=== PATIENT | female | born 1940 | race Caucasian/White ===

== ENCOUNTER 2016-09-10 13:07 | Outpatient (CLI) | payer MEDICARE, OTHER | END 2016-09-10 13:08 | disposition home or self-care (01) | DX: Z12.31 Encounter for screening mammogram for malignant neoplasm of breast (principal) ==

== ENCOUNTER 2016-09-25 08:15 | Outpatient (CLI) | payer MEDICARE, OTHER | END 2016-09-25 08:16 | disposition home or self-care (01) | DX: E78.5 Hyperlipidemia, unspecified (principal); I10 Essential (primary) hypertension; E03.9 Hypothyroidism, unspecified ==

== ENCOUNTER 2017-04-01 17:42 | Outpatient (CLI) | payer MEDICARE, OTHER ==
[2017-04-01 13:08] LABS: ALBUMIN/GLOBULIN RATIO 1.3 (1.0-2.2); BILIRUBIN,TOTAL 0.8 mg/dL (0.2-1.0); CALCIUM 9.5 mg/dL (8.5-10.3); CREATININE 0.9 mg/dL (0.4-1.0); POTASSIUM 3.2 mmol/L (3.5-5.0); TOTAL PROTEIN 6.8 g/dL (6.7-8.2)
== END 2017-04-01 17:43 | disposition home or self-care (01) ==
LOC: LAB.WCP 17:42
PROVIDERS: ATTEND Family Medicine
DX: R73.01 Impaired fasting glucose (principal); I10 Essential (primary) hypertension
CPT/HCPCS: 36415; 80053

== ENCOUNTER 2017-09-22 13:09 | Outpatient (CLI) | payer MEDICARE, OTHER ==
--- NOTE | 2017-09-23 21:18 | Mammography Report ---
DATE OF SERVICE: 09/22/2017 DIGITAL SCREENING MAMMOGRAM: 09/22/2017 CLINICAL INDICATION: A 76-year-old for screening. COMPARISON: 08/2016, 03/2015, 03/2014, 03/2013, 03/2012, 03/2011, 03/2010. TECHNIQUE: Routine CC and MLO projections were obtained of the breasts. The breasts again demonstrate heterogeneously dense fibroglandular parenchyma bilaterally. Coarse, typically benign calcifications are present. No suspicious masses, clustered microcalcifications, or regions of architectural distortion are identified. IMPRESSION: Benign findings. RECOMMENDATIONS: Routine annual screening unless otherwise clinically indicated. BIRADS category 2 benign findings. STANDARD QUALIFYING STATEMENTS 1. This examination was reviewed with the aid of Computed-Aided Detection (CAD). 2. A negative or benign imaging report should not delay biopsy if clinically suspicious findings are present. Consider surgical consultation if warranted. More than 5% of cancers are not identified by imaging. 3. Dense breasts may obscure an underlying neoplasm. TD: 09/23/2017 22:17
== END 2017-09-22 13:10 | disposition home or self-care (01) ==
LOC: DI 13:09
PROVIDERS: ATTEND Family Medicine
DX: Z12.31 Encounter for screening mammogram for malignant neoplasm of breast (principal)
CPT/HCPCS: 77067

== ENCOUNTER 2017-09-26 09:00 | Outpatient (CLI) | payer MEDICARE, OTHER ==
[2017-09-26 12:41] LABS: BASOPHILS % (AUTO) 0.4 %; EOSINOPHILS # (AUTO) 0.2 10^3/uL (0.0-0.7); EOSINOPHILS % (AUTO) 3.3 %; HGB - HEMOGLOBIN 13.8 g/dL (12.0-16.0); LYMPHOCYTES # (AUTO) 1.9 10^3/uL (1.5-3.5); LYMPHOCYTES % (AUTO) 28.6 %; MEAN CORPUSCULAR HEMOGLOBIN 29.5 pg (27.0-31.0); MEAN CORPUSCULAR HGB CONC 33.8 g/dL (32.0-36.0); MEAN CORPUSCULAR VOLUME 87.4 fL (81.0-99.0); MONOCYTES # (AUTO) 0.6 10^3/uL (0.0-1.0); MONOCYTES % (AUTO) 8.7 %; NEUTROPHILS # (AUTO) 3.9 10^3/uL (1.5-6.6); PLT - PLATELET COUNT 248 10^3/uL (130-450); RED BLOOD COUNT 4.69 10^6/uL (4.20-5.40); RED CELL DISTRIBUTION WIDTH 12.6 % (12.0-15.0); WHITE BLOOD COUNT 6.7 x10^3/uL (4.8-10.8)
[2017-09-26 13:02] LABS: ALBUMIN/GLOBULIN RATIO 1.2 (1.0-2.2); ALKALINE PHOSPHATASE 84 IU/L (42-121); ALT ALANINE AMINOTRANSFERASE 16 IU/L (10-60); AST ASPARTATE AMINOTRANSFERASE 24 IU/L (10-42); BILIRUBIN,TOTAL 0.6 mg/dL (0.2-1.0); BUN - BLOOD UREA NITROGEN 13 mg/dL (6-20); CALCIUM 9.6 mg/dL (8.5-10.3); CARBON DIOXIDE - CO2 29 mmol/L (21-32); CHLORIDE 94 mmol/L (101-111); CREATININE 0.9 mg/dL (0.4-1.0); GFR - MDRD 61 (>89); GLUCOSE 97 mg/dL (70-100); SODIUM 136 mmol/L (135-145); TOTAL PROTEIN 7.4 g/dL (6.7-8.2)
== END 2017-09-26 09:01 | disposition home or self-care (01) ==
LOC: LAB.WCP 09:00
PROVIDERS: ATTEND Family Medicine
DX: E03.9 Hypothyroidism, unspecified (principal)
CPT/HCPCS: 36415; 80053; 84443; 85025

== ENCOUNTER 2018-02-04 08:00 | Outpatient (CLI) | payer MEDICARE, OTHER ==
[2018-02-04 19:44] LABS: CALCIUM 9.3 mg/dL (8.5-10.3); MAGNESIUM 2.2 mg/dL (1.7-2.8)
== END 2018-02-04 08:01 | disposition home or self-care (01) ==
LOC: LAB.WCP 08:00
PROVIDERS: ATTEND Family Medicine
DX: R29.0 Tetany (principal)
CPT/HCPCS: 36415; 80048; 83735

== ENCOUNTER 2018-03-13 09:16 | Outpatient (CLI) | payer MEDICARE, OTHER ==
[2018-03-13 14:15] LABS: BUN - BLOOD UREA NITROGEN 13 mg/dL (6-20); CALCIUM 9.5 mg/dL (8.5-10.3); CARBON DIOXIDE - CO2 33 mmol/L (21-32); CHLORIDE 95 mmol/L (101-111); CHOL/HDL RATIO 3.5 (<4.4); CHOLESTEROL 173 mg/dL; CREATININE 0.8 mg/dL (0.4-1.0); GFR - MDRD 69 (>89); GLUCOSE 88 mg/dL (70-100); HDL CHOLESTEROL 49 mg/dL; LDL CHOLESTEROL,CALCULATED 89 mg/dL; LDL/HDL RATIO 1.8 (<4.4); SODIUM 136 mmol/L (135-145); VLDL CHOLESTEROL 35 mg/dL
== END 2018-03-13 09:17 | disposition home or self-care (01) ==
LOC: LAB.WCP 09:16
PROVIDERS: ATTEND Family Medicine
DX: I10 Essential (primary) hypertension (principal); E78.5 Hyperlipidemia, unspecified
CPT/HCPCS: 36415; 80048; 80061; 83721

== ENCOUNTER 2018-10-02 08:31 | Outpatient (CLI) | payer MEDICARE, OTHER ==
[2018-10-02 13:54] LABS: ALBUMIN 3.8 g/dL (3.2-5.5); ALBUMIN/GLOBULIN RATIO 1.1 (1.0-2.2); BILIRUBIN,TOTAL 0.7 mg/dL (0.2-1.0); CALCIUM 9.7 mg/dL (8.5-10.3); CREATININE 0.8 mg/dL (0.4-1.0); TOTAL PROTEIN 7.3 g/dL (6.7-8.2)
== END 2018-10-02 08:32 | disposition home or self-care (01) ==
LOC: LAB.WCP 08:31
PROVIDERS: ATTEND Family Medicine
DX: E03.9 Hypothyroidism, unspecified (principal); I10 Essential (primary) hypertension
CPT/HCPCS: 36415; 80053; 84443

== ENCOUNTER 2018-10-20 14:24 | Outpatient (CLI) | payer MEDICARE, OTHER ==
--- NOTE | 2018-10-21 09:14 | Mammography Report ---
Reason: SCREENING MAMMO Procedure Date: 10/20/2018 Accession Number: [id number] / [id number] Procedure: DARREN - Screening Mammo w/Armando CPT Code: FULL RESULT: EXAM: Screening Mammo w/Armando DATE: 10/20/2018 3:07 PM CLINICAL HISTORY: Screening encounter. 25 years of hormone therapy. TECHNIQUE: Bilateral CC and MLO views were obtained. COMPARISON: 09/22/2017 through 03/25/2013. FINDINGS: The breasts demonstrate heterogeneously dense fibroglandular parenchyma bilaterally. There are typically benign vascular and coarse calcifications. No suspicious masses, clustered microcalcifications, or regions of architectural distortion are identified. IMPRESSION: Benign findings RECOMMENDATION: Routine annual screening unless otherwise clinically indicated. BIRADS CATEGORY 2: Benign findings STANDARD QUALIFYING STATEMENTS: 1. This examination was not reviewed with the aid of Computer-Aided Detection (CAD). 2. A negative or benign imaging report should not delay biopsy if clinically suspicious findings are present. Consider surgical consultation if warrented. More than 5% of cancers are not identified by imaging. 3. Dense breasts may obscure an underlying neoplasm. 4. This examination was reviewed with the aid of 3D breast imaging (tomosynthesis).
== END 2018-10-20 14:25 | disposition home or self-care (01) ==
LOC: DI 14:24
DX: Z12.31 Encounter for screening mammogram for malignant neoplasm of breast (principal)
CPT/HCPCS: 77063; 77067

== ENCOUNTER 2019-03-25 08:18 | Day surgery (SDC) | payer MEDICARE, OTHER ==
[~2019-03-25 08:18] MED LIST: BRIMONIDINE 0.2% OPHTH DROPS 5 ML ONE; BSS/LIDOCAINE/EPINEPHRINE 1 ML SYRINGE ONE; CYCLOPENTOLATE 1% OPHTH DROPS 2 ML ONE; EPINEPHrine 1 MG/ML AMP ONE; KETOROLAC 0.45% OPHTH DROPS ONE; PHENYLEPHRINE 2.5% OPHTH 2 ML DROPS ONE; PROPARACAINE 0.5% OPHTH DROPS 15 ML ONE; TIMOLOL 0.5% OPHTH DROPS ONE; TRIAMCIN/MOXIFLOX OPHTHALMIC 0.6 ML VIAL IO ONE; VANCOMYCIN OPHTHALMI 8MG/0.8ML 8 MG/0.8 ML SYRINGE IO ONE
[2019-03-25] MEDS ORDERED: LACTATED RINGERS 500 ML IV ONE (08:37)
[2019-03-25] MEDS ORDERED: PROPARACAINE 0.5% OPHTH DROPS 15 ML RIGHTEYE ONE ×2 (08:45→10:00)
[2019-03-25] MEDS ORDERED: KETOROLAC 0.45% OPHTH DROPS RIGHTEYE ONE (08:45)
[2019-03-25] MEDS ORDERED: CYCLOPENTOLATE 1% OPHTH DROPS 2 ML RIGHTEYE ONE (08:45)
[2019-03-25] MEDS ORDERED: PHENYLEPHRINE 2.5% OPHTH 2 ML DROPS RIGHTEYE ONE (08:45)
--- NOTE | 2019-03-25 08:54 | ANESTHESIA ---
Pre-Anesthesia VS, & Labs - Diagnosis right senile combined cataract - Procedure right cataract extraction with intraocular lens - NPO >8 hours - Is Patient ?: Not Applicable Home Medications and Allergies Home Medications: Ambulatory Orders Albuterol Sulf [Ventolin Hfa Inhaler] 1 - 2 puffs INH Q4HR PRN 03/25/19 Bepotastine Besilate [Bepreve] 1 drops OP DAILY 03/25/19 Potassium Chloride [Micro-K] 10 meq PO BIDWM 03/25/19 Albuterol [Ventolin Hfa] 2 puffs INH Q4H PRN 07/06/13 Aspirin EC [Ecotrin] 81 mg PO DAILY 07/06/13 Beclomethasone 40 Mcg [Qvar 40] 0 puffs INH BID 07/06/13 Docusate Sodium Oral Soln [Colace] 100 mg PO BID 07/06/13 Fexofenadine HCl [Yuridia] 180 mg PO 07/06/13 Fosinopril Sodium 20 mg PO QPM 07/06/13 Hydrochlorothiazide 25 mg PO 07/06/13 Latanoprost 0.005% Ophth Drops [Xalatan] 1 drops OPTH QPM 07/06/13 Levothyroxine Sodium [Synthroid] 75 mcg PO 07/06/13 Lovastatin [Mevacor] 40 mg PO QPM 07/06/13 Metoprolol Succinate [Toprol Xl] 25 mg PO BID 07/06/13 Olopatadine HCl [Patanol] 5 ml OP TID PRN 07/06/13 Ranitidine HCl [Acid Video Production Coordinator 150] 150 mg PO BID 07/06/13 Triamcinolone [Nasacort Aq] 1 sprays SANDEE DAILY 07/06/13 Allergies/Adverse Reactions: Allergies Allergy/AdvReac Type Severity Reaction Status Date / Time aspirin AdvReac Mild Nausea Verified 03/25/19 08:42 erythromycin base AdvReac Cramps Verified 03/25/19 08:42 Anes History & Medical History - Anesthetic History Anesthesia Complications: reports: Post-Operative Nausea/Vomiting - Medical History Cardiovascular: reports: Arrhythmia, Valve disorder Pulmonary: reports: Asthma Gastrointestinal: reports: GERD Neuro: reports: Fainting (with dehydration 4 years ago) Musculoskeletal: reports: None Endocrine/Autoimmune: reports: HyPOthyroidism Smoking Status: Never smoker - Surgical History Gynecologic: Hysterectomy Orthopedic: Other Exam General: Alert Dental: WNL Mallampati classification: II Thyromental Distance: greater than 6 cm Respiratory: Lungs clear Cardiovascular: Regular rate, Normal S1, Normal S2 Mental/Cognitive Status: Alert/Oriented X3 Plan Anesthesia Type: MAC Consent for Procedure(s) Verified and Reviewed: Yes Code Status: Attempt Resuscitation ASA classification: 2-Mild systemic disease Is this case an emergency?: No
[2019-03-25] MEDS ORDERED: EPINEPHrine 1 MG/ML AMP IVP ONE (10:00)
[2019-03-25] MEDS ORDERED: BRIMONIDINE 0.2% OPHTH DROPS 5 ML OPTH ONE (10:00)
[2019-03-25] MEDS ORDERED: TIMOLOL 0.5% OPHTH DROPS OPTH ONE (10:00)
[2019-03-25] MEDS ORDERED: BSS/LIDOCAINE/EPINEPHRINE 1 ML SYRINGE IO ONE (10:00)
[2019-03-25] MEDS ORDERED: CHONDR SULF/HYALURONATE SYRINGE IO ONE (10:00)
[2019-03-25] MEDS ORDERED: VANCOMYCIN OPHTHALMI 8MG/0.8ML 8 MG/0.8 ML SYRINGE IO ONE (10:02)
[2019-03-25] MEDS ORDERED: TRIAMCIN/MOXIFLOX OPHTHALMIC 0.6 ML VIAL IO ONE (10:02)
[2019-03-25 10:25] VITALS: BP 128/58
--- NOTE | 2019-03-25 12:09 | OPERATIVE REPORT ---
DATE OF SERVICE: 03/25/2019 Physician: Denys Rosales MD PREOPERATIVE DIAGNOSIS: Visually significant cataract, right eye. This was her first cataract surge ry. POSTOPERATIVE DIAGNOSIS: Visually significant cataract, right eye. This was her first cataract surg randell. DESCRIPTION OF PROCEDURE: Phacoemulsification with posterior chamber intraocular lens implant, right eye. SURGEON: Denys Rosales M.D. ANESTHESIA: Monitored anesthesia care. COMPLICATIONS: None. OPERATIVE INDICATIONS: This is an 78-year-old woman with progressive vision loss in the right eye du e to primarily macular degeneration. She has dry macular degeneration that is severe, but she also h as a 4+ nuclear sclerotic cataract and 3+ cortical cataract. Best corrected visual acuity was 20/200 with glare to hand motion in the right eye. Indications for surgery are overall decrease in vision, difficulty seeing words on a computer screen, difficulty reading, difficulty seeing words, closed ca ption or game scores on TV, difficulty seeing street signs, difficulty driving in low light or at nig ht, difficulty driving at night because of headlights from other vehicles, and difficulty with glare or bright lights in any situation. She was consented at length concerning risks and benefits of dustin ract surgery, after which she expressed a desire to proceed with surgery. OPERATIVE PROCEDURE: Patient was taken into OR #3 and placed under monitored anesthesia care. Surgi maia timeout was conducted confirming correct patient, correct procedure, and correct surgical site. She was given topical anesthesia, and then prepped and draped in the usual sterile fashion. The eye was entered at the 12 and 9 o'clock positions. Intracameral Shugarcaine was injected into the anteri or chamber, followed by Viscoat. A continuous-tear curvilinear capsulorrhexis was performed. The nu cleus was hydrodissected and phacoemulsified. The cortex was evacuated using automated infusion and aspiration. Provisc was injected in the capsular bag, and a 20.5 diopter intraocular lens inserted i nto the bag. Approximately 0.8 mL mixture of triamcinolone, moxifloxacin and vancomycin was injected subconjunctivally in the superior quadrant for infection and inflammation prophylaxis. I and A was used to evacuate the viscoelastic materials. The eye was inflated to physiologic pressure using rodriguez nced salt solution and found to be watertight. Patient was taken from the operating room in good con dition and given postoperative instructions. TD: 03/25/2019 11:02
== END 2019-03-25 08:19 | disposition home or self-care (01) ==
LOC: SDS 08:18
PROVIDERS: ATTEND Ophthalmology
PROC: 08RJ3JZ Replacement of Right Lens with Synthetic Substitute, Percutaneous Approach (ICD-10-PCS; principal; 2019-03-25 09:30)
DX: H25.811 Combined forms of age-related cataract, right eye (principal); I10 Essential (primary) hypertension; I48.91 Unspecified atrial fibrillation; J45.909 Unspecified asthma, uncomplicated; Z87.891 Personal history of nicotine dependence
CPT/HCPCS: 66984; A9270; J3490; V2632

== ENCOUNTER 2019-04-29 08:18 | Day surgery (SDC) | payer MEDICARE, OTHER ==
[~2019-04-29 08:18] MED LIST changes: -BRIMONIDINE 0.2% OPHTH DROPS 5 ML ONE; -BSS/LIDOCAINE/EPINEPHRINE 1 ML SYRINGE ONE; -EPINEPHrine 1 MG/ML AMP ONE; -TIMOLOL 0.5% OPHTH DROPS ONE; -TRIAMCIN/MOXIFLOX OPHTHALMIC 0.6 ML VIAL IO ONE; -VANCOMYCIN OPHTHALMI 8MG/0.8ML 8 MG/0.8 ML SYRINGE IO ONE
[2019-04-29] MEDS ORDERED: MIDAZOLAM 2 MG/2 ML VIAL IVP ONE (08:19)
[2019-04-29] MEDS ORDERED: fentaNYL 100 MCG/2 ML VIAL IVP ONE (08:19)
[2019-04-29] MEDS ORDERED: CYCLOPENTOLATE 1% OPHTH DROPS 2 ML LEFTEYE ONE (08:54)
[2019-04-29] MEDS ORDERED: KETOROLAC 0.45% OPHTH DROPS LEFTEYE ONE (08:54)
[2019-04-29] MEDS ORDERED: PHENYLEPHRINE 2.5% OPHTH 2 ML DROPS LEFTEYE ONE (08:54)
[2019-04-29] MEDS ORDERED: PROPARACAINE 0.5% OPHTH DROPS 15 ML LEFTEYE ONE (08:54)
[2019-04-29] MEDS ORDERED: LACTATED RINGERS 500 ML IV ONE (08:56)
--- NOTE | 2019-04-29 09:05 | ANESTHESIA ---
Pre-Anesthesia VS, & Labs - Diagnosis Left senile combined cataract - Procedure Left phaco with IOL implant Vital Signs: Temp Pulse Resp BP Pulse Ox 36.6 C 80 14 163/63 H 98 04/29/19 08:46 04/29/19 08:46 04/29/19 08:46 04/29/19 08:46 04/29/19 08:46 Height 5 ft 1 in Weight (kg) 67.9 kg - NPO >8 hours - Is Patient ?: Not Applicable - Lab Results Lab results reviewed: No Home Medications and Allergies Home Medications: Ambulatory Orders Cetirizine [ZyrTEC] 10 mg PO DAILY 04/28/19 Aspirin EC [Ecotrin] 81 mg PO DAILY 07/06/13 Beclomethasone 40 Mcg [Qvar 40] 0 puffs INH BID 07/06/13 Docusate Sodium Oral Soln [Colace] 100 mg PO BID 07/06/13 Fosinopril Sodium 20 mg PO QPM 07/06/13 Hydrochlorothiazide 25 mg PO DAILY 07/06/13 Latanoprost 0.005% Ophth Drops [Xalatan] 1 drops OPTH QPM 07/06/13 Levothyroxine Sodium [Synthroid] 75 mcg PO DAILY 07/06/13 Lovastatin [Mevacor] 40 mg PO QPM 07/06/13 Metoprolol Succinate [Toprol Xl] 25 mg PO BID 07/06/13 Ranitidine HCl [Acid Rehab Manager 150] 150 mg PO BID 07/06/13 Albuterol Sulf [Ventolin Hfa Inhaler] 1 - 2 puffs INH Q4HR PRN 03/25/19 Bepotastine Besilate [Bepreve] 1 drops OP DAILY 03/25/19 Potassium Chloride [Micro-K] 10 meq PO BIDWM 03/25/19 Cetirizine [ZyrTEC] 10 mg PO DAILY 04/28/19 Allergies/Adverse Reactions: Allergies Allergy/AdvReac Type Severity Reaction Status Date / Time aspirin AdvReac Mild Nausea Verified 03/25/19 08:42 erythromycin base AdvReac Cramps Verified 03/25/19 08:42 latex AdvReac Itching Verified 04/28/19 14:20 Anes History & Medical History - Anesthetic History Anesthesia Complications: reports: No previous complications Family history of Anesthesia Complications: Denies Family history of Malignant Hyperthermia: Denies - Medical History Cardiovascular: reports: Hypertension, Arrhythmia Pulmonary: reports: Asthma Gastrointestinal: reports: GERD Urinary: reports: None Neuro: reports: Fainting (with dehydration 4 years ago) Musculoskeletal: reports: Osteoarthritis Endocrine/Autoimmune: reports: HyPOthyroidism Blood Disorders: reports: None Skin: reports: Other Smoking Status: Never smoker Psychosocial: reports: No issues indicated - Surgical History General: Colonoscopy Eyes Ears Nose Throat (EENT): Tonsil/Adenoidectomy Gynecologic: Hysterectomy Orthopedic: Other Exam General: Alert, Oriented x3 Dental: WNL Mouth Opening: Greater than 4 Fingerbreadths Neck Mobility: Normal Mallampati classification: I Thyromental Distance: greater than 6 cm Respiratory: Lungs clear Mental/Cognitive Status: Alert/Oriented X3 Cognitive Status: Within normal limits Plan Anesthesia Type: MAC Consent for Procedure(s) Verified and Reviewed: Yes Code Status: Attempt Resuscitation ASA classification: 2-Mild systemic disease Is this case an emergency?: No
[2019-04-29] MEDS ORDERED: EPINEPHrine 1 MG/ML AMP IVP ONE (09:39)
[2019-04-29] MEDS ORDERED: BRIMONIDINE 0.2% OPHTH DROPS 5 ML OPTH ONE (09:39)
[2019-04-29] MEDS ORDERED: BSS/LIDOCAINE/EPINEPHRINE 1 ML SYRINGE IO ONE (09:40)
[2019-04-29] MEDS ORDERED: CHONDR SULF/HYALURONATE SYRINGE IO ONE (09:40)
[2019-04-29] MEDS ORDERED: VANCOMYCIN OPHTHALMI 8MG/0.8ML 8 MG/0.8 ML SYRINGE IO ONE ×2 (09:40→10:49)
[2019-04-29] MEDS ORDERED: TIMOLOL 0.5% OPHTH DROPS OPTH ONE (09:40)
[2019-04-29] MEDS ORDERED: TRIAMCIN/MOXIFLOX OPHTHALMIC 0.6 ML VIAL IO ONE ×2 (09:40→10:48)
--- NOTE | 2019-04-29 10:15 | OPERATIVE REPORT ---
DATE OF SERVICE: 04/29/2019 Physician: Denys Rosales MD PREOPERATIVE DIAGNOSIS: Visually significant cataract, left eye. Cataract surgery was performed on the right eye on 03/25/2019. POSTOPERATIVE DIAGNOSIS: Visually significant cataract, left eye. Cataract surgery was performed on the right eye on 03/25/2019. PROCEDURE: Phacoemulsification with posterior chamber intraocular lens implant, left eye. SURGEON: Denys Rosales MD ANESTHESIA: Monitored anesthesia care. COMPLICATIONS: None. OPERATIVE INDICATIONS: This is an 78-year-old woman with progressive vision loss in the left eye due to 3+ nuclear sclerotic and 3+ cortical cataract. Best corrected visual acuity was 20/125 with glare to hand motion vision in the left eye. Indications for surgery are overall decrease in vision, difficulty seeing words on a computer screen, difficulty reading, difficulty seeing words, closed caption or game scores on TV, difficulty seeing street signs, difficulty driving in low light or at night, difficulty driving at night because of headlights from other vehicles, and difficulty with glare or bright lights in any situation. She was consented at length concerning risks and benefits of cataract surgery, after which she expressed a desire to proceed with surgery. OPERATIVE PROCEDURE: Patient was taken to OR #3 and placed under monitored anesthesia care. A surgical timeout was conducted confirming correct patient, correct procedure, and correct surgical site. She was given topical anesthesia and then prepped and draped in the usual sterile fashion. The eye was entered at the 6 and 3 o'clock positions. Intracameral Shugarcaine was injected into the anterior chamber followed by Viscoat. A continuous-tear curvilinear capsulorrhexis was performed. The nucleus was hydrodissected and phacoemulsified. The cortex was evacuated using automated infusion and aspiration (I&A). Provisc was injected in the capsular bag and a 20.5 diopter intraocular lens inserted in the bag. Approximately 0.8 mL of a mixture of triamcinolone, moxifloxacin and vancomycin was injected subconjunctivally in the superior quadrant for infection and inflammation prophylaxis. I&A was used to evacuate the viscoelastic materials. The eye was inflated to physiologic pressure using balanced salt solution and found to be watertight. The patient was taken from the operating room in good condition and given postoperative instructions. TD: 04/29/2019 09:58 SHARONDA
[2019-04-29 10:20] VITALS: BP 118/63
[2019-04-29] MEDS ORDERED: BRIMONIDINE 0.2% OPHTH DROPS 5 ML ONE (10:49)
[2019-04-29] MEDS ORDERED: EPINEPHrine 1 MG/ML AMP ONE (10:49)
[2019-04-29] MEDS ORDERED: BSS/LIDOCAINE/EPINEPHRINE 1 ML SYRINGE ONE (10:49)
[2019-04-29] MEDS ORDERED: TIMOLOL 0.5% OPHTH DROPS ONE (10:49)
== END 2019-04-29 08:19 | disposition home or self-care (01) ==
LOC: SDS 08:18
PROVIDERS: ATTEND Ophthalmology
PROC: 08RK3JZ Replacement of Left Lens with Synthetic Substitute, Percutaneous Approach (ICD-10-PCS; principal; 2019-04-29 09:30)
DX: H25.812 Combined forms of age-related cataract, left eye (principal); J45.909 Unspecified asthma, uncomplicated; I48.91 Unspecified atrial fibrillation; K21.9 Gastro-esophageal reflux disease without esophagitis; E78.00 Pure hypercholesterolemia, unspecified; E03.9 Hypothyroidism, unspecified; H35.30 Unspecified macular degeneration; Z79.82 Long term (current) use of aspirin; Z79.51 Long term (current) use of inhaled steroids; Z87.891 Personal history of nicotine dependence
CPT/HCPCS: 66984; A9270; J3490; V2632

== ENCOUNTER 2019-05-29 20:10 | Emergency (ER) | payer MEDICARE, OTHER ==
[2019-05-29] MEDS ORDERED: PROPARACAINE 0.5% OPHTH DROPS 15 ML LEFTEYE STA (22:29)
--- NOTE | 2019-05-29 22:58 | ED Physician Documentation ---
PD HPI OPHTHO - Stated complaint Stated Complaint: LT EYE STING - POST SURGERY - Chief complaint Chief Complaint: Heent - History obtained from History obtained from: Patient - History of Present Illness Timing - onset: Yesterday Timing - details: Gradual onset, Intermittant Location: Left Quality / character: Other (FB sensation) Associated symptoms: FB sensation Contributing factors: No: Wears glasses, Wears contacts Similar symptoms before: Has not had sx before Recently seen: Not recently seen - Additional information Additional information: c/o left eye FB sensation since yesterday. No injury and does not recall specific incident of FB getting into the eye. FB sensation has been intermittent, at times completely resolved Review of Systems Eyes: reports: Irritation (FB sensation). 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: Hysterectomy HEENT: Cataracts, Tonsil/Adenoidectomy - Present Medications Home Medications: Ambulatory Orders Medication Instructions Recorded Confirmed Aspirin EC [Ecotrin] 81 mg PO DAILY 07/06/13 04/28/19 Beclomethasone 40 Mcg [Qvar 40] 0 puffs INH BID 07/06/13 04/28/19 Docusate Sodium Oral Soln [Colace] 100 mg PO BID 07/06/13 04/28/19 Fosinopril Sodium 20 mg PO QPM 07/06/13 04/28/19 Hydrochlorothiazide 25 mg PO DAILY 07/06/13 04/28/19 Latanoprost 0.005% Ophth Drops 1 drops OPTH QPM 07/06/13 04/28/19 [Xalatan] Levothyroxine Sodium [Synthroid] 75 mcg PO DAILY 07/06/13 04/28/19 Lovastatin [Mevacor] 40 mg PO QPM 07/06/13 04/28/19 Metoprolol Succinate [Toprol Xl] 25 mg PO BID 07/06/13 04/28/19 Ranitidine HCl [Acid Cloth Mercerizer Back Tender 150] 150 mg PO BID 07/06/13 04/28/19 Albuterol Sulf [Ventolin Hfa 1 - 2 puffs INH Q4HR PRN 03/25/19 04/28/19 Inhaler] Bepotastine Besilate [Bepreve] 1 drops OP DAILY 03/25/19 04/28/19 Potassium Chloride [Micro-K] 10 meq PO BIDWM 03/25/19 04/28/19 Cetirizine [ZyrTEC] 10 mg PO DAILY 04/28/19 04/28/19 - Allergies Allergies/Adverse Reactions: Allergies Allergy/AdvReac Type Severity Reaction Status Date / Time aspirin AdvReac Mild Nausea Verified 05/29/19 20:23 erythromycin base AdvReac Cramps Verified 05/29/19 20:23 latex AdvReac Itching Verified 05/29/19 20:23 - Social History Does the pt smoke?: No Smoking Status: Never smoker Does the pt drink ETOH?: No Does the pt have substance abuse?: No - Immunizations Immunizations are current?: Yes - POLST Patient has POLST: Yes PD ED PE NORMAL - Vitals Vital signs reviewed: Yes - General General: Alert and oriented X 3, No acute distress, Well developed/nourished - HEENT HEENT: PERRL, EOMI PD ED PE EXPANDED - Eyes Eyes: Normal eyelids, No eyelid FB (everted), Nl conjunctiva/sclera, Normal corneas, Anterior chambers clear. No: Fluorescein uptake Results - Vitals Vitals: Oxygen O2 Source Room air PD MEDICAL DECISION MAKING - ED course Complexity details: considered differential, d/w patient ED course: no FB visualized on exam and no fluorescein uptake (left eye). Exam is s/o corneal abrasion and will cover with abx. drops despite no defect visualized on exam Departure - Departure Disposition: 01 Home, Self Care Clinical Impression: Sensation of foreign body in eye Condition: Good Instructions: ED Eye Injury Corneal Abrasion Follow-Up: Denys Rosales MD [Provider Admit Priv/Credential] - Comments: Take the antibiotic drops as follows: 2 drops in left eye three times per day for five days. Discharge Date/Time: 05/29/19 23:47
[2019-05-29] MEDS ORDERED: POLYMYXIN B/TRIMETH OPHTH DROPS LEFTEYE STA (23:21)
[2019-05-29 23:40] VITALS: BP 183/85
== END 2019-05-29 23:47 | disposition home or self-care (01) ==
LOC: ED 20:10
DX: H57.12 Ocular pain, left eye (principal); I10 Essential (primary) hypertension; Z79.82 Long term (current) use of aspirin
CPT/HCPCS: 99282; A9270; J3490

== ENCOUNTER 2019-10-01 13:47 | Outpatient (CLI) | payer MEDICARE, OTHER ==
--- NOTE | 2019-10-12 15:47 | Mammography Report ---
Reason: ROUTINE MAMMO Procedure Date: 10/01/2019 Accession Number: [id number] / [id number] Procedure: DARREN - Screening Mammo w/Armando CPT Code: Final Report FULL RESULT: EXAM: Screening Mammo w/Armando DATE: 10/01/2019 2:20 PM CLINICAL HISTORY: Screening encounter. TECHNIQUE: (B) - Bilateral CC and MLO views were obtained. COMPARISON: 10/20/2018 through 03/27/2010. PARENCHYMAL PATTERN: (D) - The breast(s) demonstrate(s) heterogeneously dense fibroglandular parenchyma. FINDINGS: There are coarse typically benign calcifications and typically benign vascular calcifications. There are no suspicious masses, calcifications, or areas of distortion. IMPRESSION: Benign findings. BI-RADS category 2. RECOMMENDATION: (ANNUAL) - Recommend routine annual screening mammography. BI-RADS CATEGORY: (2) - Benign Findings. STANDARD QUALIFYING STATEMENTS: 1. This examination was not reviewed with the aid of Computer-Aided Detection (CAD). 2. A negative or benign imaging report should not preclude biopsy if clinically suspicious findings are present. 3. Dense breasts may obscure an underlying neoplasm. 4. This examination was reviewed with the aid of 3D breast imaging (tomosynthesis).
== END 2019-10-01 13:48 | disposition home or self-care (01) ==
LOC: DI 13:47
DX: Z12.31 Encounter for screening mammogram for malignant neoplasm of breast (principal)
CPT/HCPCS: 77063; 77067

== ENCOUNTER 2019-11-08 07:23 | Outpatient (CLI) | payer MEDICARE, OTHER ==
[2019-11-08 12:51] LABS: BASOPHILS % (AUTO) 0.6 %; EOSINOPHILS # (AUTO) 0.4 10^3/uL (0.0-0.7); EOSINOPHILS % (AUTO) 5.5 %; HGB - HEMOGLOBIN 13.3 g/dL (12.0-16.0); LYMPHOCYTES # (AUTO) 1.8 10^3/uL (1.5-3.5); MEAN CORPUSCULAR HEMOGLOBIN 28.9 pg (27.0-31.0); MEAN PLATELET VOLUME 8.9 fL (7.9-10.8); MONOCYTES # (AUTO) 0.8 10^3/uL (0.0-1.0); NEUTROPHILS # (AUTO) 3.8 10^3/uL (1.5-6.6); NEUTROPHILS % (AUTO) 55.6 %; PLT - PLATELET COUNT 268 10^3/uL (130-450); RED BLOOD COUNT 4.61 10^6/uL (4.20-5.40); WHITE BLOOD COUNT 6.9 x10^3/uL (4.8-10.8)
[2019-11-08 12:52] LABS: ALBUMIN 3.8 g/dL (3.2-5.5); ALBUMIN/GLOBULIN RATIO 1.2 (1.0-2.2); ALKALINE PHOSPHATASE 74 IU/L (42-121); ALT ALANINE AMINOTRANSFERASE 23 IU/L (10-60); AST ASPARTATE AMINOTRANSFERASE 28 IU/L (10-42); BILIRUBIN,TOTAL 0.6 mg/dL (0.2-1.0); BUN - BLOOD UREA NITROGEN 16 mg/dL (6-20); CALCIUM 9.7 mg/dL (8.5-10.3); CARBON DIOXIDE - CO2 29 mmol/L (21-32); CHLORIDE 99 mmol/L (101-111); CHOL/HDL RATIO 3.1 (<4.4); CHOLESTEROL 174 mg/dL; GFR - MDRD 53 (>89); GLUCOSE 94 mg/dL (70-100); HDL CHOLESTEROL 57 mg/dL; LDL CHOLESTEROL,CALCULATED 93 mg/dL; LDL/HDL RATIO 1.6 (<4.4); SODIUM 138 mmol/L (135-145); TOTAL PROTEIN 7.1 g/dL (6.7-8.2); VLDL CHOLESTEROL 24 mg/dL
== END 2019-11-08 07:24 | disposition home or self-care (01) ==
LOC: LAB.WCP 07:23
PROVIDERS: ATTEND Family Medicine
DX: E87.6 Hypokalemia (principal); E78.5 Hyperlipidemia, unspecified; R73.01 Impaired fasting glucose; I10 Essential (primary) hypertension
CPT/HCPCS: 36415; 80053; 80061; 83721; 84443; 85025

== ENCOUNTER 2020-04-23 11:49 | Outpatient (CLI) | payer MEDICARE, OTHER ==
--- NOTE | 2020-04-23 18:37 | Ultrasound Report ---
PROCEDURE: Pelvic w/Transvaginal INDICATIONS: VULVAR LESION TECHNIQUE: Real-time scanning was performed of the pelvic organs, with image documentation. Additional endovagi nal scanning was necessary due to incomplete visualization of the adnexal and endometrial structures by transabdominal scanning. COMPARISON: None. FINDINGS: Transabdominal scanning: Limited scanning through the kidneys shows no hydronephrosis. A 9 mm right kidney cyst is incidentally noted. No pathologic free abdominal or pelvic fluid. Dedicated scanning is performed at the area of clinical concern of the left labia, with translabial s leland. No masses are seen. Endovaginal scanning: Uterus: Removed. Ovaries: Neither ovary is seen. No adnexal masses are seen on either side. IMPRESSION: No masses are seen involving the area of clinical concern involving the left labia. Status post hysterectomy and bilateral oophorectomy, without adnexal masses seen. Reviewed by: Sean Levy MD on 04/23/2020 5:35 PM RACHAEL Approved by: eSan Levy MD on 04/23/2020 5:35 PM AKFRANCINE Station ID: [id number]
== END 2020-04-23 11:50 | disposition home or self-care (01) ==
LOC: DI 11:49
PROVIDERS: ATTEND Family Medicine
DX: N90.89 Other specified noninflammatory disorders of vulva and perineum (principal); Z90.710 Acquired absence of both cervix and uterus
CPT/HCPCS: 76830; 76856

== ENCOUNTER 2020-10-12 10:31 | Outpatient (CLI) | payer MEDICARE, OTHER ==
--- NOTE | 2020-10-13 12:32 | Mammography Report ---
BILATERAL DIGITAL SCREENING MAMMOGRAM 3D/2D: 10/12/2020 CLINICAL: Routine screening. Comparison is made to exams dated: 10/01/2019 mammogram, 10/20/2018 mammogram, 09/22/2017 mammogram, 08/25 mammogram, 04/19/2015 mammogram, and 04/14/2014 mammogram - [facility]. The t issue of both breasts is heterogeneously dense. This may lower the sensitivity of mammography. There are benign calcifications in both breasts. There also are benign vascular calcifications in emilio th breasts. No significant masses, calcifications, or other findings are seen in either breast. There has been no significant interval change. IMPRESSION: BENIGN There is no mammographic evidence of malignancy. A 1 year screening mammogram is recommended. This exam was interpreted at Station ID: [id number]. NOTE: For mammograms, a report in lay terms will be sent to the patient. Approximately 15% of breast malignancies will not be visualized mammographically. In the management of a palpable breast mass, a negative mammogram must not discourage biopsy of a clinically suspicious lesion. Electronically Signed By: Fazal Cuevas M.D. ddp/penrad:10/12/2020 11:32:55 ACR BI-RADS Category 2: Benign Finding(s) 3342F PARENCHYMAL PATTERN: (D) - The breast(s) demonstrate(s) heterogeneously dense fibroglandular parboni farley. BI-RADS CATEGORY: (2) - 2 RECOMMENDATION: (ANNUAL) - Recommend routine annual screening mammography. [id number] 1 year screening LATERALITY: (B)
== END 2020-10-12 10:32 | disposition home or self-care (01) ==
LOC: DI.N 10:31
DX: Z12.31 Encounter for screening mammogram for malignant neoplasm of breast (principal)

== ENCOUNTER 2020-11-03 08:00 | Outpatient (CLI) | payer MEDICARE, OTHER ==
[2020-11-03 13:21] LABS: BASOPHILS % (AUTO) 0.4 %; EOSINOPHILS # (AUTO) 0.3 10^3/uL (0.0-0.7); HCT - HEMATOCRIT 41.8 % (37.0-47.0); HGB - HEMOGLOBIN 13.8 g/dL (12.0-16.0); LYMPHOCYTES # (AUTO) 2.5 10^3/uL (1.5-3.5); LYMPHOCYTES % (AUTO) 31.4 %; MEAN CORPUSCULAR HEMOGLOBIN 29.9 pg (27.0-31.0); MEAN CORPUSCULAR VOLUME 90.7 fL (81.0-99.0); MEAN PLATELET VOLUME 9.2 fL (7.9-10.8); MONOCYTES # (AUTO) 0.6 10^3/uL (0.0-1.0); MONOCYTES % (AUTO) 7.2 %; NEUTROPHILS # (AUTO) 4.6 10^3/uL (1.5-6.6); NEUTROPHILS % (AUTO) 56.6 %; PLT - PLATELET COUNT 293 10^3/uL (130-450); RED BLOOD COUNT 4.61 10^6/uL (4.20-5.40); RED CELL DISTRIBUTION WIDTH 12.9 % (12.0-15.0)
[2020-11-03 13:58] LABS: ALBUMIN 3.9 g/dL (3.2-5.5); ALBUMIN/GLOBULIN RATIO 1.1 (1.0-2.2); ALKALINE PHOSPHATASE 97 IU/L (42-121); ALT ALANINE AMINOTRANSFERASE 21 IU/L (10-60); AST ASPARTATE AMINOTRANSFERASE 27 IU/L (10-42); BILIRUBIN,TOTAL 0.7 mg/dL (0.2-1.0); BUN - BLOOD UREA NITROGEN 17 mg/dL (6-20); CALCIUM 9.7 mg/dL (8.5-10.3); CARBON DIOXIDE - CO2 31 mmol/L (21-32); CHLORIDE 98 mmol/L (101-111); CHOL/HDL RATIO 3.2 (<4.4); CHOLESTEROL 168 mg/dL; GFR - MDRD 53 (>89); GLUCOSE 97 mg/dL (70-100); HDL CHOLESTEROL 53 mg/dL; LDL CHOLESTEROL,CALCULATED 90 mg/dL; LDL/HDL RATIO 1.7 (<4.4); POTASSIUM 3.7 mmol/L (3.5-5.0); SODIUM 137 mmol/L (135-145); TOTAL PROTEIN 7.3 g/dL (6.7-8.2); TRIGLYCERIDES 127 mg/dL; VLDL CHOLESTEROL 25 mg/dL
[2020-11-03 14:03] LABS: THYROID STIMULATING HORMONE 3.24 uIU/mL (0.34-5.60)
== END 2020-11-03 08:01 | disposition home or self-care (01) ==
LOC: LAB.WCP 08:00
PROVIDERS: ATTEND Internal Medicine
DX: E87.6 Hypokalemia (principal); E78.5 Hyperlipidemia, unspecified; E03.9 Hypothyroidism, unspecified; I10 Essential (primary) hypertension
CPT/HCPCS: 36415; 80053; 80061; 83721; 84443; 85025

== ENCOUNTER 2020-11-29 10:34 | Outpatient (CLI) | payer MEDICARE, OTHER ==
--- NOTE | 2020-11-29 12:22 | DEXA Report ---
PROCEDURE: Dexa Spine and/or Hip INDICATIONS: POST MENOPAUSAL TECHNIQUE: Dual energy x-ray absorptiometry (DXA) was performed on a [email or web address] System. Regions measur ed are the AP Spine, femoral neck, and if needed forearm. COMPARISON: None. FINDINGS: Lumbar Spine: Bone Mineral Density 1.039 g/cm/cm,T score -1.2, osteopenia Left Femoral Neck: Bone Mineral Density 0.995 g/cm/cm, T score -0.1, normal bone mineral density (T score greater or equal to -1.0: NORMAL) (T score from -1.1 to -2.4: OSTEOPENIA) (T score less than or equal to -2.5 to: OSTEOPOROSIS) Impression: OSTEOPENIA. Patient is at increased risk for fracture. Patients with diagnosis of osteoporosis or osteopenia should have regular bone mineral density assess ment. For those eligible for Medicare, routine testing is allowed once every 2 years. Testing frequ ency can be increased for patients who have rapidly progressing disease or for those who are receivin g medical therapy to restore bone mass. Reviewed by: Austen Michael MD on 11/29/2020 12:21 PM PDT Approved by: Austen Michael MD on 11/29/2020 12:21 PM PDT Station ID: [id number]
== END 2020-11-29 10:35 | disposition home or self-care (01) ==
LOC: DI 10:34
PROVIDERS: ATTEND Internal Medicine
DX: M85.88 Other specified disorders of bone density and structure, other site (principal)

== ENCOUNTER 2020-12-07 12:07 | Outpatient (CLI) | payer MEDICARE, OTHER | END 2020-12-07 12:08 | disposition critical access hospital (66) | LOC: EMS 12:07 | DX: R42 Dizziness and giddiness (principal) | CPT/HCPCS: A0425; A0427 ==

== ENCOUNTER 2020-12-07 12:26 | Emergency (ER) | payer MEDICARE, OTHER ==
[2020-12-07] MEDS ORDERED: ONDANSETRON 4 MG/2 ML VIAL IVP STA (12:50)
--- NOTE | 2020-12-07 12:53 | ED Physician Documentation ---
History of Present Illness - Stated complaint Stated Complaint: VERTIGO - Chief complaint Chief Complaint: Neuro - Additonal information Additional information: 80-year-old female presents the emergency department for evaluation of vertigo and a sensation of the room spinning. She reports that the symptoms started yesterday and she was seen at a walk-in clinic where she was told that she had a left ear effusion and was prescribed meclizine. This morning when the patient woke up and sat up she had severe vertigo reported as the room spinning which lasted a few minutes. Intermittently through the day she is also had it and it does seem positional, especiall when going from laying to sitting or turning her head sharply. She attempted meclizine withtou relief of symptoms She denies chest pain or shortness of air. She has no tinnitus or recent infections. She does take Qvar and Flonase for history of asthma. She also has a history of hypertension for which she takes fosinopril, hydrochlorothiazide, and metoprolol. Review of Systems Constitutional: denies: Fever, Chills Eyes: denies: Loss of vision, Decreased vision Ears: reports: Other (wears hearing aids). denies: Loss of hearing, Drainage/discharge, Tinnitus/ringing Nose: reports: Reviewed and negative Throat: reports: Reviewed and negative Cardiac: reports: Reviewed and negative Respiratory: reports: Reviewed and negative GI: reports: Nausea, Vomiting. denies: Abdominal Pain, Constipation, Diarrhea : denies: Dysuria, Frequency Skin: denies: Rash, Lesions Musculoskeletal: denies: Extremity swelling Neurologic: reports: Other (vertigo). 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 HEENT: Cataracts, Tonsil/Adenoidectomy - Present Medications Home Medications: Ambulatory Orders Medication Instructions Recorded Confirmed Aspirin EC [Ecotrin] 81 mg PO DAILY 07/06/13 12/07/20 Docusate Sodium Oral Soln [Colace] 100 mg PO BID 07/06/13 12/07/20 Fosinopril Sodium 20 mg PO QPM 07/06/13 12/07/20 Hydrochlorothiazide 25 mg PO DAILY 07/06/13 12/07/20 Levothyroxine Sodium [Synthroid] 75 mcg PO DAILY 07/06/13 12/07/20 Lovastatin [Mevacor] 40 mg PO QPM 07/06/13 12/07/20 Metoprolol Succinate [Toprol Xl] 25 mg PO BID 07/06/13 12/07/20 Potassium Chloride [Micro-K] 10 meq PO BIDWM 03/25/19 12/07/20 Cetirizine [ZyrTEC] 10 mg PO DAILY 04/28/19 12/07/20 Meclizine HCl [Antivert] 1 tab TID PRN 12/07/20 12/07/20 - Allergies Allergies/Adverse Reactions: Allergies Allergy/AdvReac Type Severity Reaction Status Date / Time aspirin AdvReac Mild Nausea Verified 12/07/20 12:34 erythromycin base AdvReac Cramps Verified 12/07/20 12:34 latex AdvReac Itching Verified 12/07/20 12:34 - Social History Does the pt smoke?: No Smoking Status: Never smoker Does the pt drink ETOH?: No Does the pt have substance abuse?: No - Immunizations Immunizations are current?: Yes - POLST Patient has POLST: Yes PD ED PE EXPANDED - General General: Alert, No acute distress - HEENT HEENT: EOMI. No: Head injury, Ears normal (Small bilateral effusions), R TM red, R TM dull - Eyes Eyes: PERRL, EOMI, Other (Positive [place]-Hallpike bilaterally with fast beating lateral nystagmus.) - Neck Neck: Supple w/out meningeal sx. No: Adenopathy - Cardiac Cardiac: Regular Rate, Radial strong equal, Pedal strong equal, Cap refill < 2 sec. No: Murmur Present - Respiratory Respiratory: Clear to ausultation denisa. No: Distress, Labored - Abdomen Abdomen: Normal Bowel sounds. No: Tender to palpation - Derm Derm: Normal color, Warm and dry - Extremities Extremities: Normal. No: Deformity, Tenderness - Neuro Neuro: Alert and Oriented X 3, CNII-XII intact, Nystagmus, Normal finger nose, Normal speech, Other (+ jorge alberto wang [place]ike bilaterally. NIHSS 0). No: Confused, Normal gait (Could not assess gait however she had very normal finger-nose, heel krishna.) - GCS Eye Opening: Spontaneous Motor: Obeys Commands Verbal: Oriented Total: 15 Results - Vitals Vitals: Vital Signs - 24 hr 12/07/20 12/07/20 12/07/20 12:33 13:00 14:01 Temperature 36.6 C Heart Rate 72 62 70 Respiratory 16 16 16 Rate Blood Pressure 145/105 H 148/67 H 161/68 H O2 Saturation 100 100 99 Oxygen O2 Source Room air - EKG (time done) 1523 Rate: Rate (enter#) (77) Rhythm: NSR [place]: Normal Intervals: Normal [place]. No: Prolonged QT QRS: Poor R wave progression Ischemia: Non specific changes Compare to prior EKG: Old EKG unavailable Computer interpretation: Agree with computer - Labs Labs: Laboratory Tests 12/07/20 12/07/20 12/07/20 13:12 13:12 15:23 WBC 11.0 H RBC 4.91 Hgb 14.7 Hct 42.6 MCV 86.8 MCH 29.9 MCHC 34.5 RDW 12.6 Plt Count 256 MPV 8.6 Neut # (Auto) 9.4 H Lymph # (Auto) 1.0 L [place] # (Auto) 0.5 Eos # (Auto) 0.0 Baso # (Auto) 0.0 Absolute Nucleated RBC 0.00 Nucleated RBC % 0.0 Sodium 132 L Potassium 3.5 Chloride 93 L Carbon Dioxide 29 Anion Gap 10.0 BUN 18 Creatinine 0.8 Estimated GFR (MDRD) 69 L Glucose 140 H Calcium 10.5 H Total Bilirubin 0.8 AST 24 ALT 22 Alkaline Phosphatase 101 Total Protein 7.9 Albumin 4.4 Globulin 3.5 Albumin/Globulin Ratio 1.3 Lipase 31 Urine Color YELLOW Urine Clarity CLEAR Urine pH 8.0 H Ur Specific [place] 1.020 Urine Protein NEGATIVE Urine Glucose (UA) NEGATIVE Urine Ketones NEGATIVE Urine Occult Blood NEGATIVE Urine Nitrite NEGATIVE Urine Bilirubin NEGATIVE Urine Urobilinogen 0.2 (NORMAL) Ur Leukocyte Esterase NEGATIVE Ur Microscopic Review NOT INDICATED Urine Culture Comments NOT INDICATED PD MEDICAL DECISION MAKING - ED course Complexity details: reviewed results, re-evaluated patient, d/w patient ED course: 80-year-old female presents to the emergency department for evaluation of epis odic vertigo that began yesterday. The sensation of the room spinning typically lasts seconds to just a few minutes and is certainly worse when changing positions such as going from laying to upright or turning her head sharply. On exam she does have bilateral inner ear effusions. I also had a positive [place]- Hallpike bilaterally on exam. She has no focal neuro deficits, very fluid speech and heel krishna. Screening labs show no acute abnormality. Patient was given Zofran, meclizine as well as scopolamine and lorazepam without relief of her vertigo. She was unable to sit upright in bed without listing to the left. Unfortunately though her symptoms appears very peripheral and she does have bilateral inner ear effusions, we are not able to safely send her home. In addition we do not have MRI services at this time. [facility]igo [facility] and will likely include MRI imaging 1600: [facility] had no beds available. I spoke with Dr. Velasco at [facility], however he declined to accept pt in transfer as they do not have any neurology services available. Will look for bed at [facility]. 1645: Patient has been accepted to [facility] by provider Lora Rosales nurse practitioner. Appropriate COBRA paperwork completed. Patient and her son made aware of plans to transfer. Departure - Departure Disposition: 02 Transfer Acute Care Hosp Clinical Impression: Vertigo Condition: Stable Record reviewed to determine appropriate education?: Yes
--- OUTSIDE RECORDS SUMMARY | 2020-12-07 12:58 | EXTERNAL MEDICAL SUMMARY RPT | Continuity of Care Document ---
:1940 Demographics Phone Unavailable Preferred Language Unknown Marital Status Unknown Uatsdin Affiliation Unknown Race Unknown Ethnic Group Unknown Author Organization [place] Address [address] [phone] Phone Social History date description facility [phone]
[2020-12-07] MEDS ORDERED: SODIUM CHLORIDE 0.9% 1,000 ML IV STA (13:00)
[2020-12-07] MEDS ORDERED: SCOPOLAMINE PATCH TOP SCH (13:00)
[2020-12-07] MEDS ORDERED: SCOPOLAMINE PATCH TOP STA (13:06)
[2020-12-07 13:23] LABS: BASOPHILS % (AUTO) 0.2 %; EOSINOPHILS % (AUTO) 0.2 %; HCT - HEMATOCRIT 42.6 % (37.0-47.0); HGB - HEMOGLOBIN 14.7 g/dL (12.0-16.0); MEAN CORPUSCULAR HEMOGLOBIN 29.9 pg (27.0-31.0); MEAN CORPUSCULAR HGB CONC 34.5 g/dL (32.0-36.0); MEAN CORPUSCULAR VOLUME 86.8 fL (81.0-99.0); MEAN PLATELET VOLUME 8.6 fL (7.9-10.8); MONOCYTES # (AUTO) 0.5 10^3/uL (0.0-1.0); MONOCYTES % (AUTO) 4.9 %; NEUTROPHILS # (AUTO) 9.4 10^3/uL (1.5-6.6); NEUTROPHILS % (AUTO) 85.4 %; PLT - PLATELET COUNT 256 10^3/uL (130-450); RED BLOOD COUNT 4.91 10^6/uL (4.20-5.40); RED CELL DISTRIBUTION WIDTH 12.6 % (12.0-15.0)
[2020-12-07 13:30] LABS: ALBUMIN 4.4 g/dL (3.2-5.5); ALBUMIN/GLOBULIN RATIO 1.3 (1.0-2.2); BILIRUBIN,TOTAL 0.8 mg/dL (0.2-1.0); CALCIUM 10.5 mg/dL (8.5-10.3); CREATININE 0.8 mg/dL (0.4-1.0); POTASSIUM 3.5 mmol/L (3.5-5.0); TOTAL PROTEIN 7.9 g/dL (6.7-8.2)
[2020-12-07] MEDS ORDERED: MECLIZINE 12.5 MG TABLET PO STA (14:06)
[2020-12-07] MEDS ORDERED: LORazepam 2 MG/ML VIAL IVP STA (15:12)
[2020-12-07 15:46] LABS: BILIRUBIN,URINE NEGATIVE (NEGATIVE); GLUCOSE, URINE (UA) NEGATIVE (NEGATIVE); KETONES,URINE (UA) NEGATIVE (NEGATIVE); LEUKOCYTE ESTERASE, URINE NEGATIVE (NEGATIVE); NITRITE,URINE NEGATIVE (NEGATIVE); OCCULT BLOOD,URINE NEGATIVE (NEGATIVE); PROTEIN,URINE NEGATIVE (NEGATIVE); UROBILINOGEN,URINE 0.2 (NORMAL) E.U./dL (NORMAL)
[2020-12-07 15:47] LABS: CLARITY,URINE CLEAR (CLEAR)
--- NOTE | 2020-12-07 16:33 | CT Report ---
PROCEDURE: HEAD WO INDICATIONS: vertigo TECHNIQUE: Noncontrast 4.5 mm thick angled axial sections acquired from the foramen magnum to the vertex. For r adiation dose reduction, the following was used: automated exposure control, adjustment of mA and/or kV according to patient size. COMPARISON: None. FINDINGS: Image quality: Excellent. CSF spaces: Basal cisterns are patent. No extra-axial fluid collections. The ventricles are symmet nicholas in size and shape. Brain: No intracranial bleeds or masses. There is cerebral volume loss for age, with resultant vent ricular and sulcal prominence. There are periventricular and deep white matter chronic small vessel ischemic changes. There is intracranial internal carotid artery atherosclerosis. Skull and face: Calvarium and visualized facial bones appear intact, without suspicious lesions. Sinuses: Visualized sinuses and mastoids are clear. IMPRESSION: No CT evidence of acute intracranial pathology. Age-appropriate atrophy and mild white matter chronic small vessel ischemic changes. Reviewed by: Artemio Hu MD on 12/07/2020 3:32 PM AKDT Approved by: Artemio Hu MD on 12/07/2020 3:32 PM AKDT Station ID: [id number]
[2020-12-07 18:11] VITALS: BP 153/67
[2020-12-07 19:03] LABS: B. PARAPERTUSSIS- RESP PCR PAN NOT DETECTED; B. PERTUSSIS- RESP PCR PANEL NOT DETECTED; C. PNEUMONIAE- RESP PCR PANEL NOT DETECTED; CORONAVIRUS 229E-RESP PCR NOT DETECTED; CORONAVIRUS HKU1-RESP PCR NOT DETECTED; CORONAVIRUS NL63-RESP PCR NOT DETECTED; CORONAVIRUS OC43-RESP PCR NOT DETECTED; HUMAN METAPNEUMOVIRUS NOT DETECTED; INFLUENZA A- RESP PCR PANEL NOT DETECTED; INFLUENZA B - RESP PCR PANEL NOT DETECTED; M. PNEUMONIAE- RESP PCR PANEL NOT DETECTED; PARAINFLUENZA VIRUS 1 NOT DETECTED; PARAINFLUENZA VIRUS 2 NOT DETECTED; PARAINFLUENZA VIRUS 3 NOT DETECTED; PARAINFLUENZA VIRUS 4 NOT DETECTED; RHINOVIRUS/ENTEROVIRUS NOT DETECTED; RSV- RESP PCR PANEL NOT DETECTED; SARS-CoV-2 -RESP PCR PANEL NOT DETECTED
== END 2020-12-07 18:35 | disposition short-term general hospital (02) ==
LOC: ED 12:26
DX: R42 Dizziness and giddiness (principal); H83.8X3 Other specified diseases of inner ear, bilateral; Z20.822 Contact with and (suspected) exposure to COVID-19; J45.909 Unspecified asthma, uncomplicated; I10 Essential (primary) hypertension; Z79.82 Long term (current) use of aspirin
CPT/HCPCS: 36415; 70450; 80053; 81003; 83690; 85025; 87631; 93005; 96361; 96374; 96375; 99284; 99285; A9270; J2060; J3490; 0202U; 81001; 87086

== ENCOUNTER 2020-12-07 17:50 | Outpatient (CLI) | payer MEDICARE, OTHER | END 2020-12-07 17:51 | disposition short-term general hospital (02) | LOC: EMS 17:50 | PROVIDERS: ATTEND Registered Nurse | DX: R42 Dizziness and giddiness (principal); I10 Essential (primary) hypertension; H35.30 Unspecified macular degeneration | CPT/HCPCS: A0425; A0428 ==

== ENCOUNTER 2021-08-03 07:26 | Outpatient (CLI) | payer MEDICARE, OTHER ==
[2021-08-03 12:55] LABS: ESTIMATED AVERAGE GLUCOSE 123 mg/dL (70-100); HEMOGLOBIN A1c% 5.9 % (4.27-6.07)
[2021-08-03 13:19] LABS: CREATININE,URINE 121.8 mg/dL; MICROALBUM/CREATININE RATIO,UR 8.2 ug/mg (<30.0)
[2021-08-03 13:27] LABS: ALBUMIN 3.9 g/dL (3.2-5.5); ALBUMIN/GLOBULIN RATIO 1.1 (1.0-2.2); ALKALINE PHOSPHATASE 83 IU/L (42-121); ALT ALANINE AMINOTRANSFERASE 21 IU/L (10-60); AST ASPARTATE AMINOTRANSFERASE 26 IU/L (10-42); BILIRUBIN,TOTAL 1.2 mg/dL (0.2-1.0); BUN - BLOOD UREA NITROGEN 15 mg/dL (6-20); CALCIUM 9.7 mg/dL (8.5-10.3); CARBON DIOXIDE - CO2 29 mmol/L (21-32); CHLORIDE 96 mmol/L (101-111); CHOL/HDL RATIO 3.1 (<4.4); CHOLESTEROL 157 mg/dL; CREATININE 0.9 mg/dL (0.4-1.0); GFR - MDRD 60 (>89); GLUCOSE 102 mg/dL (70-100); HDL CHOLESTEROL 50 mg/dL; LDL CHOLESTEROL,CALCULATED 77 mg/dL; LDL/HDL RATIO 1.5 (<4.4); POTASSIUM 3.5 mmol/L (3.5-5.0); SODIUM 136 mmol/L (135-145); TOTAL PROTEIN 7.4 g/dL (6.7-8.2); TRIGLYCERIDES 149 mg/dL; VLDL CHOLESTEROL 30 mg/dL
[2021-08-03 13:35] LABS: THYROID STIMULATING HORMONE 3.37 uIU/mL (0.34-5.60)
== END 2021-08-03 23:59 | disposition home or self-care (01) ==
LOC: LAB.WCP 07:26
PROVIDERS: ATTEND Internal Medicine
DX: E78.5 Hyperlipidemia, unspecified (principal); R73.01 Impaired fasting glucose; M85.80 Other specified disorders of bone density and structure, unspecified site
CPT/HCPCS: 36415; 80053; 80061; 82043; 82570; 83036; 83721; 84443

== ENCOUNTER 2021-11-12 12:34 | Outpatient (CLI) | payer MEDICARE, OTHER ==
--- NOTE | 2021-11-13 10:24 | Mammography Report ---
BILATERAL DIGITAL SCREENING MAMMOGRAM 3D/2D: 11/12/2021 CLINICAL: Routine screening. Comparison is made to exams dated: 10/12/2020 mammogram, 10/01/2019 mammogram, 10/20/2018 mammogram, 08/26 mammogram, and 09/10/2016 mammogram - Merged with [facility]. The tissue of both breasts is heterogeneously dense. This may lower the sensitivity of mammography. There are benign calcifications in both breasts. There also are benign vascular calcifications in emilio th breasts. No significant masses, calcifications, or other findings are seen in either breast. There has been no significant interval change. IMPRESSION: BENIGN There is no mammographic evidence of malignancy. A 1 year screening mammogram is recommended. This exam was interpreted at Station ID: [id number]. NOTE: For mammograms, a report in lay terms will be sent to the patient. Approximately 15% of breast malignancies will not be visualized mammographically. In the management of a palpable breast mass, a negative mammogram must not discourage biopsy of a clinically suspicious lesion. Electronically Signed By: Eric Rothman M.D. [facility] [place] [place]/penrad:11/12/2021 16:47:48 ACR BI-RADS Category 2: Benign Finding(s) 3342F PARENCHYMAL PATTERN: (D) - The breast(s) demonstrate(s) heterogeneously dense fibroglandular paryaely martine. BI-RADS CATEGORY: (2) - 2 RECOMMENDATION: (ANNUAL) - Recommend routine annual screening mammography. [id number] 1 year screening LATERALITY: (B)
== END 2021-11-12 12:35 | disposition home or self-care (01) ==
LOC: DI.N 12:34
DX: Z12.31 Encounter for screening mammogram for malignant neoplasm of breast (principal)

== ENCOUNTER 2022-06-21 07:12 | Outpatient (CLI) | payer MEDICARE, OTHER ==
[2022-06-21 12:04] LABS: BASOPHILS % (AUTO) 0.5 %; EOSINOPHILS # (AUTO) 0.7 10^3/uL (0.0-0.7); EOSINOPHILS % (AUTO) 8.9 %; HCT - HEMATOCRIT 41.2 % (37.0-47.0); HGB - HEMOGLOBIN 13.5 g/dL (12.0-16.0); LYMPHOCYTES # (AUTO) 2.2 10^3/uL (1.5-3.5); LYMPHOCYTES % (AUTO) 27.1 %; MEAN CORPUSCULAR HEMOGLOBIN 29.6 pg (27.0-31.0); MEAN CORPUSCULAR HGB CONC 32.8 g/dL (32.0-36.0); MEAN CORPUSCULAR VOLUME 90.4 fL (81.0-99.0); MEAN PLATELET VOLUME 9.1 fL (7.9-10.8); MONOCYTES # (AUTO) 0.8 10^3/uL (0.0-1.0); MONOCYTES % (AUTO) 9.6 %; NEUTROPHILS # (AUTO) 4.3 10^3/uL (1.5-6.6); NEUTROPHILS % (AUTO) 53.6 %; PLT - PLATELET COUNT 272 10^3/uL (130-450); RED BLOOD COUNT 4.56 10^6/uL (4.20-5.40); RED CELL DISTRIBUTION WIDTH 12.7 % (12.0-15.0)
[2022-06-21 12:23] LABS: CREATININE,URINE 102.5 mg/dL; MICROALBUM/CREATININE RATIO,UR 8.8 ug/mg (<30.0); MICROALBUMIN,URINE 0.9 mg/dL (0-300.0)
[2022-06-21 12:36] LABS: ESTIMATED AVERAGE GLUCOSE 126 mg/dL (70-100)
[2022-06-21 12:42] LABS: ALBUMIN/GLOBULIN RATIO 1.2 (1.0-2.2); ALKALINE PHOSPHATASE 87 IU/L (42-121); ALT ALANINE AMINOTRANSFERASE 15 IU/L (10-60); AST ASPARTATE AMINOTRANSFERASE 24 IU/L (10-42); BILIRUBIN,TOTAL 0.5 mg/dL (0.2-1.0); BUN - BLOOD UREA NITROGEN 14 mg/dL (6-20); CALCIUM 9.9 mg/dL (8.5-10.3); CARBON DIOXIDE - CO2 31 mmol/L (21-32); CHLORIDE 97 mmol/L (101-111); CHOL/HDL RATIO 3.6 (<4.4); CHOLESTEROL 174 mg/dL; GFR - MDRD 53 (>89); GLUCOSE 96 mg/dL (70-100); HDL CHOLESTEROL 48 mg/dL; LDL CHOLESTEROL,CALCULATED 103 mg/dL; LDL/HDL RATIO 2.1 (<4.4); POTASSIUM 3.9 mmol/L (3.5-5.0); SODIUM 135 mmol/L (135-145); TOTAL PROTEIN 7.4 g/dL (6.7-8.2); TRIGLYCERIDES 117 mg/dL; VLDL CHOLESTEROL 23 mg/dL
[2022-06-21 12:43] LABS: THYROID STIMULATING HORMONE 3.14 uIU/mL (0.34-5.60)
== END 2022-06-21 07:13 | disposition home or self-care (01) ==
LOC: LAB.N 07:12
PROVIDERS: ATTEND Internal Medicine
DX: E78.5 Hyperlipidemia, unspecified (principal); R73.01 Impaired fasting glucose; E03.9 Hypothyroidism, unspecified; I10 Essential (primary) hypertension
CPT/HCPCS: 36415; 80053; 80061; 82043; 82570; 83036; 83721; 84443; 85025

== ENCOUNTER 2022-11-06 14:31 | Outpatient (CLI) | payer MEDICARE, OTHER ==
--- NOTE | 2022-11-07 10:22 | Mammography Report ---
BILATERAL DIGITAL SCREENING MAMMOGRAM 3D/2D: 11/06/2022 CLINICAL: Routine screening. Comparison is made to exams dated: 11/12/2021 mammogram, 10/12/2020 mammogram, 10/01/2019 mammogram, 09/26 mammogram, 09/22/2017 mammogram, and 09/10/2016 mammogram - [facility]. Both breasts are heterogeneously dense, which may obscure small masses (category c / 51-75% glandular tissue). There are benign calcifications in both breasts. There also are benign vascular calcifications in emilio th breasts. No significant masses, calcifications, or other findings are seen in either breast. There has been no significant interval change. IMPRESSION: BENIGN There is no mammographic evidence of malignancy. A 1 year screening mammogram is recommended. Based on the Tyrer Cuzick model (a risk assessment model) the patients lifetime risk is 0.6% and her 10 year risk is 0.0%. According to the ACR, ACS, and NCCN guidelines, an annual breast MRI exam mai g with mammogram is recommended if the patients lifetime risk is 20% or greater. This exam was interpreted at Station ID: [id number]. NOTE: For mammograms, a report in lay terms will be sent to the patient. Approximately 15% of breast malignancies will not be visualized mammographically. In the management of a palpable breast mass, a negative mammogram must not discourage biopsy of a clinically suspicious lesion. Electronically Signed By: Laurent irizarry/steph:11/06/2022 15:33:39 letter sent: No_Letter ACR BI-RADS Category 2: Benign Finding(s) 3342F PARENCHYMAL PATTERN: (D) - The breast(s) demonstrate(s) heterogeneously dense fibroglandular parenchy ma. BI-RADS CATEGORY: (2) - 2 Mammogram [id number] 1 year screening LATERALITY: (B)
== END 2022-11-06 14:32 | disposition home or self-care (01) ==
LOC: DI.N 14:31
DX: Z12.31 Encounter for screening mammogram for malignant neoplasm of breast (principal)

== ENCOUNTER 2023-02-22 16:09 | Outpatient (CLI) | payer MEDICARE, OTHER | END 2023-02-22 23:59 | disposition critical access hospital (66) | LOC: EMS 16:09 | DX: R42 Dizziness and giddiness (principal); R11.0 Nausea | CPT/HCPCS: A0425; A0429 ==

== ENCOUNTER 2023-02-22 16:25 | Emergency (ER) | payer MEDICARE, OTHER ==
[2023-02-22] MEDS ORDERED: MECLIZINE 12.5 MG TABLET PO STA (16:34)
--- OUTSIDE RECORDS SUMMARY | 2023-02-22 16:34 | EXTERNAL MEDICAL SUMMARY RPT | Continuity of Care Document ---
Author Name Unknown Address [address] [phone] Phone Organization [place] Address [address] [place] [address] Phone Problems date description facility 2023-01-13 10:20 Sensorineural hearing loss, denisa [facility] 2023-01-15 11:11 Benign neoplasm of cranial [facility]
--- NOTE | 2023-02-22 16:36 | ED Physician Documentation ---
History of Present Illness - Stated complaint Stated Complaint: DIZZY - Chief complaint Chief Complaint: Neuro - History obtained from History obtained from: Patient, EMS - History of Present Illness Timing: Today Pain level max: 0 Pain level now: 0 - Additonal information Additional information: 82-year-old female presents to the emergency department for intermittent dizziness over the past few days. She states that it worsened today when she was in [place]. She states it feels similar to prior episodes of vertigo. She states the symptoms are currently very mild. She states that she had trouble standing and walking when it was at its worst. Denies any trauma. No falls. No injuries. No recent illness. Does use hearing aids. No numbness, tingling, weakness, speech difficulties. No vision changes. No headache. She states that she drank a large bottle of water on the way home from [place] and is now feeling better. 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 HEENT: Cataracts, Tonsil/Adenoidectomy - Present Medications Home Medications: Ambulatory Orders Medication Instructions Recorded Confirmed Aspirin EC [Ecotrin] 81 mg PO DAILY 07/06/13 12/07/20 Docusate Sodium Oral Soln [Colace] 100 mg PO BID 07/06/13 12/07/20 Fosinopril Sodium 20 mg PO QPM 07/06/13 12/07/20 Hydrochlorothiazide 25 mg PO DAILY 07/06/13 12/07/20 Levothyroxine Sodium [Synthroid] 75 mcg PO DAILY 07/06/13 12/07/20 Lovastatin [Mevacor] 40 mg PO QPM 07/06/13 12/07/20 Metoprolol Succinate [Toprol Xl] 25 mg PO BID 07/06/13 12/07/20 Potassium Chloride [Micro-K] 10 meq PO BIDWM 03/25/19 12/07/20 Cetirizine [ZyrTEC] 10 mg PO DAILY 04/28/19 12/07/20 Meclizine HCl [Antivert] 1 tab TID PRN 12/07/20 12/07/20 - Allergies Allergies/Adverse Reactions: Allergies Allergy/AdvReac Type Severity Reaction Status Date / Time aspirin AdvReac Mild Nausea Verified 02/22/23 16:32 erythromycin base AdvReac Cramps Verified 02/22/23 16:32 latex AdvReac Itching Verified 02/22/23 16:32 - Social History Does the pt smoke?: No Smoking Status: Never smoker Does the pt drink ETOH?: No Does the pt have substance abuse?: No - Immunizations Immunizations are current?: Yes - POLST Patient has POLST: Yes PD ED PE NORMAL - Vitals Vital signs reviewed: Yes - General General: Alert and oriented X 3, No acute distress - HEENT HEENT: Atraumatic, PERRL, EOMI, Ears normal, Moist mucous membranes, Pharynx benign - Neck Neck: Supple, no meningeal sign - Cardiac Cardiac: RRR, Strong equal pulses - Respiratory Respiratory: No respiratory distress, Clear bilaterally - Abdomen Abdomen: Soft, Non tender, Non distended - Derm Derm: Warm and dry - Extremities Extremities: No edema - Neuro Neuro: Alert and oriented X 3, 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 Relevant findings are: Rate: Rate (enter#) (88) [place]: Normal Intervals: Prolonged [place] QRS: Normal Ischemia: Normal ST segments - Labs Labs: Laboratory Tests 02/22/23 02/22/23 16:45 16:45 WBC 9.9 RBC 4.64 Hgb 13.6 Hct 41.3 MCV 89.0 MCH 29.3 MCHC 32.9 RDW 12.6 Plt Count 252 MPV 8.2 Neut # (Auto) 7.2 H Lymph # (Auto) 1.4 L [place] # (Auto) 0.7 Eos # (Auto) 0.5 Baso # (Auto) 0.0 Absolute Nucleated RBC 0.00 Nucleated RBC % 0.0 Sodium 133 L Potassium 3.2 L Chloride 96 L Carbon Dioxide 27 Anion Gap 10.0 BUN 16 Creatinine 0.9 Estimated GFR (MDRD) 60 L Glucose 143 H Calcium 9.2 Total Bilirubin 0.6 AST 22 ALT 17 Alkaline Phosphatase 89 Total Protein 7.4 Albumin 3.6 Globulin 3.8 Albumin/Globulin Ratio 0.9 L PD Medical Decision Making - ED course Complexity details: reviewed results, re-evaluated patient, considered differential, d/w patient, d/w family ED course: The patient's family arrived to the emergency department and relayed that 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 This has been stable on serial MRIs that she has yearly. Last MRI was in October. This is thought to be contributing to her recurrent vertigo. She had been told to take meclizine, but patient did not take any meclizine today. The patient does not have any focal neurological deficits. She has chronic hypokalemia. She did not take her potassium this morning. Patient is asymptomatic here after meclizine and potassium. She is ambulating without any difficulty. Does not need any assistive devices. No focal neurological deficits. We will have her follow-up with her PCP for further care. Patient counseled regarding signs and symptoms for which I believe and urgent re-evaluation would be necessary. Patient with good understanding of and agreement to plan and is comfortable going home at this time This document was made in part using voice recognition software. While efforts are made to proofread this document, sound alike and grammatical errors may occur. Departure - Departure Disposition: 01 Home, Self Care Clinical Impression: Vertigo, Hypokalemia, Dehydration Condition: Good Instructions: ED Vertigo Unspecified Follow-Up: Sergey Arreguin MD [Provider Admit Priv/Credential] - Comments: Please follow-up with your doctor for further care. Your potassium is mildly low today and this was replaced. Please make sure you are drinking plenty of fluids at home. Your dizziness could also be caused by your acoustic neuroma/schwannoma. You can use meclizine for any further dizziness. Discharge Date/Time: 02/22/23 18:08 NIHSS - Time Time: 16:33 - Level of Consciousness Level of consciousness: (0) Alert, Keenly responsive LOC Questions: (0) Answers both Q's correct LOC Commands: (0) Performs both correctly - Gaze Best Gaze: (0) Normal - Visual Visual: (0) No loss - Facial Palsy Facial Palsy: (0) Normal, symmetrical movement - Motor Arms (both separate) Motor Arm (right): (0) No drift Motor Arm (left): (0) No drift - Motor Legs (both separate) Motor Leg (right): (0) No drift Motor Leg (left): (0) No drift - Limb Ataxia Limb Ataxia: (0) Absent - Sensory Sensory: (0) Normal - Best Language Best Language: (0) No aphasia - Dysarthria Dysarthria: (0) Normal - Extinction and Inattention (formally neg Extinction and inattention: (0) No abnormality - Total Score/Results Total Score/Result: 0
[2023-02-22 16:49] LABS: BASOPHILS % (AUTO) 0.4 %; EOSINOPHILS # (AUTO) 0.5 10^3/uL (0.0-0.7); HCT - HEMATOCRIT 41.3 % (37.0-47.0); HGB - HEMOGLOBIN 13.6 g/dL (12.0-16.0); LYMPHOCYTES # (AUTO) 1.4 10^3/uL (1.5-3.5); LYMPHOCYTES % (AUTO) 14.1 %; MEAN CORPUSCULAR HEMOGLOBIN 29.3 pg (27.0-31.0); MEAN CORPUSCULAR HGB CONC 32.9 g/dL (32.0-36.0); MEAN PLATELET VOLUME 8.2 fL (7.9-10.8); MONOCYTES # (AUTO) 0.7 10^3/uL (0.0-1.0); MONOCYTES % (AUTO) 7.2 %; NEUTROPHILS # (AUTO) 7.2 10^3/uL (1.5-6.6); NEUTROPHILS % (AUTO) 72.8 %; PLT - PLATELET COUNT 252 10^3/uL (130-450); RED BLOOD COUNT 4.64 10^6/uL (4.20-5.40); RED CELL DISTRIBUTION WIDTH 12.6 % (12.0-15.0); WHITE BLOOD COUNT 9.9 x10^3/uL (4.8-10.8)
[2023-02-22 17:02] LABS: ALBUMIN 3.6 g/dL (3.2-5.5); ALBUMIN/GLOBULIN RATIO 0.9 (1.0-2.2); BILIRUBIN,TOTAL 0.6 mg/dL (0.2-1.0); CALCIUM 9.2 mg/dL (8.5-10.3); CREATININE 0.9 mg/dL (0.4-1.0); POTASSIUM 3.2 mmol/L (3.5-5.0); TOTAL PROTEIN 7.4 g/dL (6.7-8.2)
[2023-02-22] MEDS ORDERED: POTASSIUM BICARB 25 MEQ TABLET PO STA (17:10)
[2023-02-22 18:00] VITALS: BP 172/71
== END 2023-02-22 18:08 | disposition home or self-care (01) ==
LOC: EDUNIT# → ED 16:25
DX: R42 Dizziness and giddiness (principal); E87.6 Hypokalemia; E86.0 Dehydration
CPT/HCPCS: 36415; 80053; 85025; 93005; 99284; A9270

== ENCOUNTER 2023-03-11 11:53 | Outpatient (CLI) | payer MEDICARE, OTHER ==
[2023-03-11 18:06] LABS: CALCIUM 9.8 mg/dL (8.5-10.3); CREATININE 0.9 mg/dL (0.4-1.0); POTASSIUM 3.9 mmol/L (3.5-5.0)
== END 2023-03-11 11:54 | disposition home or self-care (01) ==
LOC: LAB.N 11:53
PROVIDERS: ATTEND Internal Medicine
DX: I10 Essential (primary) hypertension (principal)
CPT/HCPCS: 36415; 80048

== ENCOUNTER 2023-05-09 07:12 | Outpatient (CLI) | payer MEDICARE, OTHER ==
[2023-05-09 12:17] LABS: BASOPHILS % (AUTO) 0.4 %; EOSINOPHILS # (AUTO) 0.5 10^3/uL (0.0-0.7); EOSINOPHILS % (AUTO) 6.2 %; HGB - HEMOGLOBIN 13.7 g/dL (12.0-16.0); LYMPHOCYTES # (AUTO) 1.9 10^3/uL (1.5-3.5); LYMPHOCYTES % (AUTO) 24.5 %; MEAN CORPUSCULAR HEMOGLOBIN 29.3 pg (27.0-31.0); MEAN CORPUSCULAR HGB CONC 32.6 g/dL (32.0-36.0); MEAN CORPUSCULAR VOLUME 89.9 fL (81.0-99.0); MEAN PLATELET VOLUME 9.1 fL (7.9-10.8); MONOCYTES # (AUTO) 0.8 10^3/uL (0.0-1.0); NEUTROPHILS # (AUTO) 4.6 10^3/uL (1.5-6.6); NEUTROPHILS % (AUTO) 58.8 %; PLT - PLATELET COUNT 270 10^3/uL (130-450); RED BLOOD COUNT 4.67 10^6/uL (4.20-5.40); RED CELL DISTRIBUTION WIDTH 12.4 % (12.0-15.0); WHITE BLOOD COUNT 7.9 x10^3/uL (4.8-10.8)
[2023-05-09 12:21] LABS: ESTIMATED AVERAGE GLUCOSE 117 mg/dL (70-100); HEMOGLOBIN A1c% 5.7 % (4.27-6.07)
[2023-05-09 12:46] LABS: ALBUMIN 4.2 g/dL (3.2-5.5); ALBUMIN/GLOBULIN RATIO 1.4 (1.0-2.2); ALKALINE PHOSPHATASE 90 IU/L (42-121); ALT ALANINE AMINOTRANSFERASE 11 IU/L (10-60); AST ASPARTATE AMINOTRANSFERASE 18 IU/L (10-42); BILIRUBIN,TOTAL 0.6 mg/dL (0.2-1.0); BUN - BLOOD UREA NITROGEN 17 mg/dL (6-20); CALCIUM 10.3 mg/dL (8.5-10.3); CARBON DIOXIDE - CO2 34 mmol/L (21-32); CHLORIDE 100 mmol/L (101-111); CHOL/HDL RATIO 3.5 (<4.4); CHOLESTEROL 168 mg/dL; CREATININE 0.9 mg/dL (0.6-1.3); GFR - MDRD 60 (>89); GLUCOSE 103 mg/dL (74-104); HDL CHOLESTEROL 48 mg/dL; LDL CHOLESTEROL,CALCULATED 94 mg/dL; POTASSIUM 3.9 mmol/L (3.5-4.5); SODIUM 140 mmol/L (135-145); TOTAL PROTEIN 7.1 g/dL (6.4-8.9); TRIGLYCERIDES 129 mg/dL (48-352); VLDL CHOLESTEROL 26 mg/dL
[2023-05-09 12:48] LABS: THYROID STIMULATING HORMONE 1.93 uIU/mL (0.34-5.60)
== END 2023-05-09 07:13 | disposition home or self-care (01) ==
LOC: LAB.N 07:12
PROVIDERS: ATTEND Internal Medicine
DX: E87.6 Hypokalemia (principal); R73.01 Impaired fasting glucose; E78.5 Hyperlipidemia, unspecified; E03.9 Hypothyroidism, unspecified; I10 Essential (primary) hypertension
CPT/HCPCS: 36415; 80053; 80061; 83036; 83721; 84443; 85025

== ENCOUNTER 2023-11-10 10:45 | Outpatient (CLI) | payer MEDICARE, OTHER ==
--- NOTE | 2023-11-11 10:33 | Mammography Report ---
BILATERAL DIGITAL SCREENING MAMMOGRAM 3D/2D: 11/10/2023 CLINICAL: Routine screening. Comparison is made to exams dated: 11/06/2022 mammogram, 11/12/2021 mammogram, 10/12/2020 mammogram, 10/01/2019 mammogram, and 10/20/2018 mammogram - [facility]. Both breasts are heterogeneously dense, which may obscure small masses (category c / 51-75% glandular tissue). There are benign calcifications in both breasts. There also are benign vascular calcifications in emilio th breasts. No significant masses, calcifications, or other findings are seen in either breast. There has been no significant interval change. IMPRESSION: BENIGN There is no mammographic evidence of malignancy. A 1 year screening mammogram is recommended. Based on the Tyrer Cuzick model (a risk assessment model) the patient's lifetime risk is 0.3% and her 10 year risk is 0.0%. According to the ACR, ACS, and NCCN guidelines, an annual breast MRI exam mai g with mammogram is recommended if the patient's lifetime risk is 20% or greater. This exam was interpreted at Station ID: [id number]. NOTE: For mammograms, a report in lay terms will be sent to the patient. Approximately 15% of breast malignancies will not be visualized mammographically. In the management of a palpable breast mass, a negative mammogram must not discourage biopsy of a clinically suspicious lesion. Electronically Signed By: Eric noble/penrad:11/10/2023 18:49:38 letter sent: No_Letter ACR BI-RADS Category 2: Benign Finding(s) 3342F PARENCHYMAL PATTERN: (D) - The breast(s) demonstrate(s) heterogeneously dense fibroglandular parenchy ma. BI-RADS CATEGORY: (2) - 2 RECOMMENDATION: (ANNUAL) - Recommend routine annual screening mammography. [id number] 1 year screening LATERALITY: (B)
== END 2023-11-10 10:46 | disposition home or self-care (01) ==
LOC: DI.N 10:45
DX: Z12.31 Encounter for screening mammogram for malignant neoplasm of breast (principal); R92.333 Mammographic heterogeneous density, bilateral breasts; R92.1 Mammographic calcification found on diagnostic imaging of breast

== ENCOUNTER 2024-02-19 07:14 | Outpatient (CLI) | payer MEDICARE, OTHER ==
[2024-02-19 12:15] LABS: BASOPHILS % (AUTO) 0.6 %; EOSINOPHILS # (AUTO) 0.7 10^3/uL (0.0-0.7); EOSINOPHILS % (AUTO) 9.6 %; HCT - HEMATOCRIT 41.1 % (37.0-47.0); HGB - HEMOGLOBIN 13.1 g/dL (12.0-16.0); LYMPHOCYTES # (AUTO) 2.2 10^3/uL (1.5-3.5); LYMPHOCYTES % (AUTO) 31.2 %; MEAN CORPUSCULAR HEMOGLOBIN 28.9 pg (27.0-31.0); MEAN CORPUSCULAR HGB CONC 31.9 g/dL (32.0-36.0); MEAN CORPUSCULAR VOLUME 90.5 fL (81.0-99.0); MEAN PLATELET VOLUME 9.2 fL (7.9-10.8); MONOCYTES # (AUTO) 0.7 10^3/uL (0.0-1.0); MONOCYTES % (AUTO) 9.6 %; NEUTROPHILS # (AUTO) 3.4 10^3/uL (1.5-6.6); NEUTROPHILS % (AUTO) 48.7 %; PLT - PLATELET COUNT 254 10^3/uL (130-450); RED BLOOD COUNT 4.54 10^6/uL (4.20-5.40); RED CELL DISTRIBUTION WIDTH 12.9 % (12.0-15.0); WHITE BLOOD COUNT 6.9 x10^3/uL (4.8-10.8)
[2024-02-19 12:42] LABS: ESTIMATED AVERAGE GLUCOSE 120 mg/dL (70-100); HEMOGLOBIN A1c% 5.8 % (4.27-6.07)
[2024-02-19 12:44] LABS: ALBUMIN/GLOBULIN RATIO 1.3 (1.0-2.2); ALKALINE PHOSPHATASE 89 IU/L (42-121); ALT ALANINE AMINOTRANSFERASE 11 IU/L (10-60); AST ASPARTATE AMINOTRANSFERASE 18 IU/L (10-42); BILIRUBIN,TOTAL 0.5 mg/dL (0.2-1.0); BUN - BLOOD UREA NITROGEN 15 mg/dL (6-20); CALCIUM 10.2 mg/dL (8.5-10.3); CARBON DIOXIDE - CO2 33 mmol/L (21-32); CHLORIDE 100 mmol/L (101-111); CHOL/HDL RATIO 2.9 (<4.4); CHOLESTEROL 150 mg/dL; CREATININE 0.8 mg/dL (0.6-1.3); GFR - MDRD 68 (>89); GLUCOSE 105 mg/dL (74-104); HDL CHOLESTEROL 51 mg/dL; LDL CHOLESTEROL,CALCULATED 78 mg/dL; LDL/HDL RATIO 1.5 (<4.4); POTASSIUM 3.9 mmol/L (3.5-4.5); SODIUM 138 mmol/L (135-145); TRIGLYCERIDES 107 mg/dL (48-352); VLDL CHOLESTEROL 21 mg/dL
[2024-02-19 13:39] LABS: THYROID STIMULATING HORMONE 2.15 uIU/mL (0.34-5.60)
== END 2024-02-19 07:15 | disposition home or self-care (01) ==
LOC: LAB.N 07:14
PROVIDERS: ATTEND Internal Medicine
DX: E78.5 Hyperlipidemia, unspecified (principal); R73.01 Impaired fasting glucose; K59.09 Other constipation; I10 Essential (primary) hypertension
CPT/HCPCS: 36415; 80053; 80061; 82043; 82570; 83036; 83721; 84443; 85025